=== PATIENT | male | born 1960 | race Caucasian/White ===

== ENCOUNTER 2019-02-02 08:40 | Day surgery (SDC) ==
[2019-02-02] MEDS: TETRACAINE 0.5% UNIT-DOSE OP PRN ×2 (08:58→10:35)
[2019-02-02] MEDS: BETADINE OPTH PREP OP PRN ×2 (08:58→10:35)
[2019-02-02] MEDS: CYCLOGYL 2% OPTH OP PRN ×3 (08:59→09:09)
[2019-02-02] MEDS ORDERED: LIDOCAINE 1%/PHENYLEPHRINE 1.5% BSS (SURGERY) INTRAOCULA ONE (09:02)
[2019-02-02] MEDS ORDERED: ZOFRAN 4 MG/2 ML IVP ONE (09:02)
[2019-02-02] MEDS ORDERED: BSS WITH EPINEPHRINE OP ONE (09:02)
[2019-02-02] MEDS ORDERED: DEX-MOXI-KETOR OPTH INJ 1/0.5/0.4 MG/ML IO ONE (09:02)
[2019-02-02] MEDS ORDERED: LIDOCAINE 1% 20 ML MDV ID STA (09:02)
[2019-02-02] MEDS ORDERED: SUBLIMAZE ONE (10:33)
[2019-02-02] MEDS ORDERED: ZOFRAN 4 MG/2 ML ONE (10:33)
[2019-02-02] MEDS ORDERED: VERSED ONE (10:33)
[2019-02-02 12:35] VITALS: TEMP 98.3
[2019-02-04 09:33] VITALS: BP 113/79
== END 2019-02-02 11:40 | disposition home or self-care (01) ==
LOC: SURG 08:40
PROVIDERS: ATTEND Ophthalmology
DX: H25.12 Age-related nuclear cataract, left eye (principal)